=== PATIENT | female | born 1965 | race Caucasian/White ===

== ENCOUNTER 2019-06-05 11:31 | Observation (INO) | payer BC ==
--- NOTE | 2019-06-05 11:46 | ER Document Report ---
ED Medical Screen (RME) - General Stated Complaint: POSSIBLE STROKE Time Seen by Provider: 06/05/19 11:36 Primary Care Provider: MARIO OROZCO MD [Primary Care Provider] - Follow up as needed Notes: 53-year-old female presents from [place] for reports of possible stroke. 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 She reports this st arted at approximately 10:00 this morning. No symptoms at this time. Reports she thought maybe it was her aura prior to her migraine but she does not have a headache at this time. Denies trauma. Also reports that her right hand fingertips feel numb. She reports she also had the symptoms last year once. I have greeted and performed a rapid initial assessment of this patient. A comprehensive ED assessment and evaluation of the patient, analysis of test results and completion of the medical decision making process will be conducted by additional ED providers. Dictation of this chart was performed using voice recognition software; therefore, there may be some unintended grammatical errors. TRAVEL OUTSIDE OF THE [place] IN LAST 30 DAYS: No - Related Data Allergies/Adverse Reactions: No Known Allergies Allergy (Verified 04/02/13 16:24) Past Medical History Past Surgical History: Reports: Hx Hysterectomy, Hx Orthopedic Surgery - right shoulder, L KNEE X3, Hx Tonsillectomy - Immunizations Hx Diphtheria, Pertussis, Tetanus Vaccination: No - UNSURE Doctor's Discharge - Discharge Referrals: MARIO OROZCO MD [Primary Care Provider] - Follow up as needed
--- NOTE | 2019-06-05 12:11 | RADIOLOGY REPORT (SQ) ---
EXAM DESCRIPTION: CT HEAD WITHOUT COMPLETED DATE/TIME: 06/05/2019 11:58 am REASON FOR STUDY: slurred speech COMPARISON: None. TECHNIQUE: Axial images acquired through the brain without intravenous contrast. Images reviewed wi th bone, brain and subdural windows. Additional sagittal and coronal reconstructions were generated. Images stored on PACS. All CT scanners at this facility use dose modulation, iterative reconstruction, and/or weight based d osing when appropriate to reduce radiation dose to as low as reasonably achievable (ALARA). [facility]: Dose Right [facility]: CareDose [facility]: Dose Right [facility]: Teradose 4D [facility]: Smart Chatalog RADIATION DOSE: CT Rad equipment meets quality standard of care and radiation dose reduction techniq ues were employed. CTDIvol: 53.2 mGy. DLP: 1044 mGy-cm. LIMITATIONS: None. FINDINGS: VENTRICLES: Normal size and contour. The cisterns are patent. CEREBRUM: No masses. No hemorrhage. No midline shift. No evidence for acute infarction. Normal gra y/white matter differentiation. No areas of low density in the white matter. CEREBELLUM: No masses. No hemorrhage. No alteration of density. No evidence for acute infarction. EXTRAAXIAL SPACES: No fluid collections. No masses. ORBITS AND GLOBE: No intra- or extraconal masses. Normal contour of globe without masses. CALVARIUM: No fracture. PARANASAL SINUSES: Right maxillary sinus mucous retention cyst or polyp. No fluid. SOFT TISSUES: No mass or hematoma. OTHER: No other significant finding. IMPRESSION: 1. No acute intracranial abnormality. 2. Right maxillary sinus mucous retention cyst or polyp. EVIDENCE OF ACUTE STROKE: NO. COMMENT: Quality ID # [id number]: Final reports with documentation of one or more dose reduction techniques (e.g., Automated exposure control, adjustment of the mA and/or kV according to patient size, use of iterative reconstruction technique) TECHNICAL DOCUMENTATION: JOB ID: [id number] [email or web address]- All Rights Reserved Reading location - IP/workstation name: [email or web address]
[2019-06-05 12:19] LABS: ABSOLUTE BASOPHILS # (AUTO) 0.1 10^3/uL (0.0-0.2); ABSOLUTE EOSINOPHILS # (AUTO) 0.1 10^3/uL (0.0-0.6); ABSOLUTE LYMPHOCYTES (AUTO) 2.1 10^3/uL (0.5-4.7); ABSOLUTE MONOCYTES (AUTO) 0.4 10^3/uL (0.1-1.4); ABSOLUTE NEUT (AUTO) 3.7 10^3/uL (1.7-8.2); BASOPHILS % (AUTO) 1.8 % (0-2); HEMATOCRIT 39.5 % (36.0-47.0); HEMOGLOBIN 13.2 g/dL (12.0-15.5); LYMPHOCYTES % (AUTO) 32.4 % (13-45); MEAN CORPUSCULAR HEMOGLOBIN 30.3 pg (27.0-33.4); MEAN CORPUSCULAR HGB CONC 33.4 g/dL (32.0-36.0); MEAN CORPUSCULAR VOLUME 91 fl (80-97); MONOCYTES % (AUTO) 6.6 % (3-13); PLATELET COUNT 318 10^3/uL (150-450); RED BLOOD COUNT 4.34 10^6/uL (3.72-5.28); RED CELL DISTRIBUTION WIDTH 13.1 % (11.5-14.0); SEGMENTED NEUTROPHILS % (AUTO) 57.2 % (42-78); TOTAL CELLS COUNTED % (AUTO) 100 %; WHITE BLOOD COUNT 6.4 10^3/uL (4.0-10.5)
[2019-06-05 12:23] LABS: INTERNATIONAL RATION (INR) 0.99
[2019-06-05 12:24] LABS: PARTIAL THROMBOPLASTIN TIME 33.2 SEC (23.5-35.8)
[2019-06-05 12:26] LABS: PROTHROMBIN TIME 13.1 SEC (11.4-15.4)
[2019-06-05 12:42] LABS: ALBUMIN 4.5 g/dL (3.5-5.0); ALKALINE PHOSPHATASE 95 U/L (38-126); ANION GAP 8 (5-19); ASPARTATE AMINO TRANSFERASE 19 U/L (14-36); BILIRUBIN,DIRECT 0.1 mg/dL (0.0-0.4); BILIRUBIN,TOTAL 0.6 mg/dL (0.2-1.3); BLOOD UREA NITROGEN 20 mg/dL (7-20); CALCIUM 9.6 mg/dL (8.4-10.2); CARBON DIOXIDE 30 mmol/L (22-30); CHLORIDE 104 mmol/L (98-107); CREATINE KINASE 83 U/L (30-135); GLUCOSE 95 mg/dL (75-110); POTASSIUM 4.5 mmol/L (3.6-5.0); TOTAL PROTEIN 7.4 g/dL (6.3-8.2)
--- NOTE | 2019-06-05 12:45 | EKG REPORT ---
SEVERITY:- NORMAL ECG - SINUS RHYTHM : Confirmed by: Merary Rodriguez MD 05-Jun-2019 12:44:03
[2019-06-05 12:54] LABS: CREATINE KINASE MB 0.91 ng/mL (<4.55)
[2019-06-05 12:56] LABS: TROPONIN I < 0.012 ng/mL
--- NOTE | 2019-06-05 13:18 | RADIOLOGY REPORT (SQ) ---
EXAM DESCRIPTION: CHEST SINGLE VIEW COMPLETED DATE/TIME: 06/05/2019 1:00 pm REASON FOR STUDY: slurred speech COMPARISON: None. EXAM PARAMETERS: NUMBER OF VIEWS: One view. TECHNIQUE: Single frontal radiographic view of the chest acquired. RADIATION DOSE: NA LIMITATIONS: None. FINDINGS: LUNGS AND PLEURA: Minimal atelectasis or scarring in the mid and lower lung zones. No ac [place] pulmonary consolidation. No pneumothorax or pleural effusion. MEDIASTINUM AND HILAR STRUCTURES: No masses. Contour normal. HEART AND VASCULAR STRUCTURES: Borderline cardiomegaly. Normal vasculature. BONES: No acute findings. HARDWARE: None in the chest. OTHER: No other significant finding. IMPRESSION: 1. Minimal atelectasis or scar in the mid and lower lung zones bilaterally. No acute p ulmonary consolidation. 2. Borderline cardiomegaly. TECHNICAL DOCUMENTATION: JOB ID: [id number] [employer]- All Rights Reserved Reading location - IP/workstation name: [email or web address]
[2019-06-05] MEDS ORDERED: FENTANYL CITRATE INJ/PF 100 MCG/2 ML AMPUL IV ONE (14:50)
[2019-06-05] MEDS ORDERED: ONDANSETRON HCL INJ/PF 4 MG/2 ML SDV IV ONE (14:50)
--- NOTE | 2019-06-05 15:09 | ER Document Report ---
ED Neuro Symptoms/Deficit - General Chief Complaint: S/S of Possible Stroke Stated Complaint: POSSIBLE STROKE Time Seen by Provider: 06/05/19 11:36 Primary Care Provider: MARIO OROZCO MD [NO LOCAL MD] - Follow up as needed TRAVEL OUTSIDE OF THE [place] IN LAST 30 DAYS: No - Related Data Allergies/Adverse Reactions: No Known Allergies Allergy (Verified 04/02/13 16:24) Past Medical History - Social History Smoking Status: Unknown if Ever Smoked Family History: Reviewed & Not Pertinent Patient has suicidal ideation: No Patient has homicidal ideation: No Past Surgical History: Reports: Hx Hysterectomy, Hx Orthopedic Surgery - right shoulder, L KNEE X3, Hx Tonsillectomy - Immunizations Hx Diphtheria, Pertussis, Tetanus Vaccination: No - UNSURE Physical Exam - Vital signs Vitals: Temp Pulse Resp BP Pulse Ox 98.2 F 66 18 154/88 H 99 06/05/19 11:32 06/05/19 11:32 06/05/19 11:32 06/05/19 11:32 06/05/19 11:32 Course - Vital Signs Vital signs: Temp Pulse Resp BP Pulse Ox 98.0 F 78 14 158/121 H 93 06/05/19 12:15 06/05/19 12:21 06/05/19 12:21 06/05/19 12:21 06/05/19 12:21 - Laboratory Result Diagrams: 06/05/19 12:00 06/05/19 12:00 Discharge - Discharge Clinical Impression: TIA (transient ischemic attack) Condition: Stable Disposition: ADMITTED OBSERVATION Admitting Provider: Davie (Hospitalist) Unit Admitted: Telemetry Referrals: MARIO OROZCO MD [NO LOCAL MD] - Follow up as needed
--- NOTE | 2019-06-05 15:48 | RADIOLOGY REPORT (SQ) ---
EXAM DESCRIPTION: L SPINE WHOLE COMPLETED DATE/TIME: 06/05/2019 3:34 pm REASON FOR STUDY: back pain COMPARISON: None. NUMBER OF VIEWS: Five views including obliques. TECHNIQUE: AP, lateral, oblique, and sacral radiographic images acquired of the lumbar spine. LIMITATIONS: None. FINDINGS: MINERALIZATION: Normal. SEGMENTATION: Normal. Transitional anatomy. ALIGNMENT: Normal. VERTEBRAE: Maintained height. No fracture or worrisome bone lesion. DISCS: Multilevel mild disc space narrowing. No significant osteophytes or end plate irregularity. POSTERIOR ELEMENTS: Pedicles and facets are intact. No pars defect or posterior arch defects. HARDWARE: None in the spine. PARASPINAL SOFT TISSUES: Normal. PELVIS: Intact as visualized. No fractures or worrisome bone lesions. SI joints intact. OTHER: No other significant finding. IMPRESSION: 1. Transitional lumbosacral anatomy. 2. Degenerative mild changes. 3. No acute osseous findings. TECHNICAL DOCUMENTATION: JOB ID: [id number] [employer]- All Rights Reserved Reading location - IP/workstation name: [email or web address]
[2019-06-05] MEDS ORDERED: LORAZEPAM INJ 2 MG/1 ML VIAL IV ONE (15:50)
[2019-06-05] MEDS ORDERED: LABETALOL HCL INJ 20 MG/4 ML DISP.SYRIN IV PRN (16:18)
--- NOTE | 2019-06-05 16:37 | PDOC H&P ---
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 She described some blurred vision which she perceived to be out of her right eye, and it appeared like she was seeing halos of light around things that were central in her visual field. She began to then feel like she was developing a headache, which she says she chronically has with either some blurred vision or some flashing lights in her visual field. She then developed trouble speaking, primarily knowing what she wanted to say while not being able to get the words out correctly. At this point she sought help from the school nurse who called EMS. The patient then began to develop numbness, weakness, and tingling in her right arm. I cannot find the EMS sheet, but I am told that her blood pressure was elevated when EMS got her, with her systolic reported to be in the 190s. The patient said she feels like after 2 to 3 hours total of this constellation of symptoms that they began to resolve and by the time she got to the emergency department she felt like her speech was better but she was still having some visual problems as well as the headache and the problems with her right arm and hand. She says that her symptoms have slowly resolved and that she has a little bit of numbness in her fingertips of her right hand, primarily the second, third, and fourth digits. She says she had an episode like this happen in October of this year and it lasted 45 minutes to an hour. She also reports a similar episode where she had a headache and trouble speaking many years ago. She says that she often has headaches with associated manifestations as noted above. Her blood pressures are still elevated in the ER but she is mostly asymptomatic. Initial head CT was negative. She says that her only medical problems that she knows of are some chronic pain in her back and her shoulder and she goes to pain management for that. Her only remarkable family history was that her mother from bilateral pulmonary emboli. There is no family history of stroke. She is a non-smoker. Past Surgical History Past Surgical History: Reports: Hysterectomy, Orthopedic Surgery - right shoulder, L KNEE X3, Tonsillectomy Social History Smoking Status: Unknown if Ever Smoked Family History Family History: Reviewed & Not Pertinent Parental Family History Reviewed: Yes Children Family History Reviewed: Yes Sibling(s) Family History Reviewed.: Yes Medication/Allergy Allergies/Adverse Reactions: No Known Allergies Allergy (Verified 04/02/13 16:24) Review of Systems All systems: reviewed and no additional remarkable complaints except as stated - All systems were reviewed and were negative except as noted in the HPI Physical Exam Vital Signs: Temp Pulse Resp BP Pulse Ox 98.0 F 78 15 152/82 H 98 06/05/19 12:15 06/05/19 12:21 06/05/19 16:00 06/05/19 16:00 06/05/19 16:00 Intake & Output 06/04/19 06/05/19 06/06/19 06:59 06:59 06:59 Weight 102.058 kg General appearance: PRESENT: no acute distress, cooperative, morbidly obese Head exam: PRESENT: atraumatic, normocephalic Eye exam: PRESENT: EOMI, PERRLA, other - Possible mild exophthalmos. ABSENT: conjunctival injection, nystagmus, scleral icterus Ear exam: PRESENT: normal external ear exam Mouth exam: PRESENT: moist, neck supple Throat exam: ABSENT: post pharyngeal erythema Neck exam: PRESENT: full ROM. ABSENT: carotid bruit, JVD, lymphadenopathy, meningismus, tenderness, thyromegaly Respiratory exam: PRESENT: clear to auscultation sourav, symmetrical, unlabored. ABSENT: accessory muscle use, chest wall tenderness, crackles, prolonged expiratory phas, rhonchi, tachypnea, wheezes Cardiovascular exam: PRESENT: RRR, +S1, +S2 Pulses: PRESENT: normal carotid pulses Vascular exam: PRESENT: normal capillary refill GI/Abdominal exam: PRESENT: normal bowel sounds, soft. ABSENT: distended, guarding, rebound, tenderness Extremities exam: ABSENT: clubbing, pedal edema Musculoskeletal exam: PRESENT: ambulatory, normal inspection. ABSENT: deformity Neurological exam: PRESENT: alert, awake, oriented to person, oriented to place, oriented to time, oriented to situation, CN II-XII grossly intact. ABSENT: motor sensory deficit Psychiatric exam: PRESENT: appropriate affect, normal mood Skin exam: PRESENT: dry, warm Results Laboratory Results: 06/05/19 12:00 06/05/19 12:00 06/05/19 06/05/19 12: 12:00 WBC 6.4 RBC 4.34 Hgb 13.2 Hct 39.5 MCV 91 MCH 30.3 MCHC 33.4 RDW 13.1 Plt Count 318 Seg Neutrophils % 57.2 Sodium 141.5 Potassium 4.5 Chloride 104 Carbon Dioxide 30 Anion Gap 8 BUN 20 Creatinine 0.68 Est GFR ( Amer) > 60 Glucose 95 Calcium 9.6 Total Bilirubin 0.6 AST 19 Alkaline Phosphatase 95 Total Protein 7.4 Albumin 4.5 06/05/19 06/05/19 12: 12:00 Creatine Kinase 83 CK-MB (CK-2) 0.91 Troponin I < 0.012 Impressions: Chest X-Ray 06/05/19 11:40 IMPRESSION: 1. Minimal atelectasis or scar in the mid and lower lung zones bilaterally. No acute pulmonary consolidation. 2. Borderline cardiomegaly. Head CT 06/05/19 11:40 IMPRESSION: 1. No acute intracranial abnormality. 2. Right maxillary sinus mucous retention cyst or polyp. EVIDENCE OF ACUTE STROKE: NO. Lumbar Spine X-Ray 06/05/19 14:50 IMPRESSION: 1. Transitional lumbosacral anatomy. 2. Degenerative mild changes. 3. No acute osseous findings. Assessment and Plan - Diagnosis (1) TIA (transient ischemic attack) Is this a current diagnosis for this admission?: Yes Plan: MRI and MRA along with carotid Dopplers have been ordered. We will give her full strength aspirin and then a baby aspirin daily. We will start a statin. We will check a lipid panel. Permissive hypertension with PRN medications the first 24 hours. If her blood pressure still elevated, will try to start bringing them down at that time. Risk factor modification. She displays no functional deficits at this time so I do not think she needs speech therapy, physical therapy, Occupational Therapy. Another possibility here is that this is an atypical migraine. If she rules out for acute stroke, will still pursue risk factor modification but we will also try to set her up with an outpatient neurology appointment. (2) Hypertensive emergency Is this a current diagnosis for this admission?: Yes Plan: Permissive hypertension with PRN labetalol for now, will try to bring the blood pressure down after the first 24 hours if she remains hypertensive. - Inpatient Certification Based on my medical assessment, after consideration of the patient's comorbidities, presenting symptoms, or acuity I expect that the services needed warrant INPATIENT care.: Yes I certify that my determination is in accordance with my understanding of Medicare's requirements for reasonable and necessary INPATIENT services [42 CFR 412.3e].: Yes Medical Necessity: Need Close Monitoring Due to Risk of Patient Decompensation, Need For Continuous Telemetry Monitoring, Need for Neurological Checks
[2019-06-05] MEDS ORDERED: ASPIRIN 325 MG TABLET PO ONE (17:00)
--- NOTE | 2019-06-05 17:30 | RADIOLOGY REPORT (SQ) ---
EXAM DESCRIPTION: MRA HEAD WITHOUT COMPLETED DATE/TIME: 06/05/2019 4:52 pm REASON FOR STUDY: speech difficulty, weakness COMPARISON: None. TECHNIQUE: Axial 3-D [id number]-[id number] acquisition imaging performed through the brain in the area of t he [place]. Images reformatted using 3-D MIPS. LIMITATIONS: None. FINDINGS: SOURCE IMAGES: No unexpected findings on source images. No large masses. 3-D MIP: No aneurysm. No occlusions. No significant stenosis. OTHER: No other significant finding. IMPRESSION: NORMAL MRA OF THE [place]. TECHNICAL DOCUMENTATION: JOB ID: [id number] [employer]- All Rights Reserved Reading location - IP/workstation name: [email or web address]
--- NOTE | 2019-06-05 17:33 | RADIOLOGY REPORT (SQ) ---
EXAM DESCRIPTION: MRI HEAD WITHOUT COMPLETED DATE/TIME: 06/05/2019 4:52 pm REASON FOR STUDY: speech difficulty, weakness COMPARISON: CT 06/05/2019 TECHNIQUE: Multiplanar imaging includes non-contrasted T1, T2, FLAIR, and diffusion with ADC map seq uences. Images stored on PACS. LIMITATIONS: None. FINDINGS: ANATOMY: No anomalies. Normal vascular flow voids. Pituitary fossa normal. CSF SPACES: Normal in size and contour. No hemorrhage. CEREBRUM: Sulci and gyri normal in size and contour. Normal white matter signal on FLAIR imaging. No evidence of hemorrhage, mass, or extraaxial fluid collection. POSTERIOR FOSSA: No signal alteration. No hemorrhage. No edema, masses or mass effect. Internal iraida tory canals, cerebello-pontine angles, mastoids normal. DIFFUSION IMAGING: Negative for acute or sub-acute infarction. ORBITS: No masses. Globes normal. PARANASAL SINUSES: No fluid levels. Mucosa normal. OTHER: No other significant finding. IMPRESSION: NORMAL MRI OF THE BRAIN WITHOUT INTRAVENOUS GADOLINIUM CONTRAST. EVIDENCE OF ACUTE STROKE: NO. TECHNICAL DOCUMENTATION: JOB ID: [id number]- All Rights Reserved Reading location - IP/workstation name: [email or web address]
--- NOTE | 2019-06-05 19:14 | RADIOLOGY REPORT (SQ) ---
EXAM DESCRIPTION: CAROTID DOPPLER COMPLETED DATE/TIME: 06/05/2019 6:54 pm REASON FOR STUDY: TIA COMPARISON: None. TECHNIQUE: Grayscale ultrasound, Doppler velocity and spectra, and color Doppler images acquired of the extra-cranial carotid and vertebral arteries. Images stored on PACS. LIMITATIONS: None. FINDINGS: RIGHT CAROTID CCA Velocities: Within normal limits. ICA Velocities Peak systolic 0.93 m/s. End diastolic 0.34 m/s. Proximal ICA/CCA peak systolic ratio 1.05. Mild soft plaque is noted. LEFT CAROTID CCA Velocities: Within normal limits. ICA Velocities Peak systolic 0.86 m/s. End diastolic 0.30 m/s. Proximal ICA/CCA peak systolic ratio 0.5. There is soft plaque. VERTEBRAL ARTERIES: Antegrade flow. Normal waveforms. SUBCLAVIAN ARTERIES: No finding. OTHER: Velocities are elevated in the proximal left common carotid artery. Clinical significance of this is uncertain. IMPRESSION: NO HEMODYNAMICALLY SIGNIFICANT STENOSIS. COMMENT: Quality ID #[id number]: Velocity criteria are extrapolated from the diameter data as defined by t he Society of Radiologists in Ultrasound Consensus Conference. Radiology 2003: 229; 340-346. TECHNICAL DOCUMENTATION: JOB ID: [id number]- All Rights Reserved Reading location - IP/workstation name: [email or web address]
[2019-06-05 21:08] LABS: APPEARANCE,URINE SLIGHTLY-CLOUDY; BILIRUBIN,URINE NEGATIVE (NEGATIVE); COLOR,URINE YELLOW; GLUCOSE, URINE NEGATIVE (NEGATIVE); KETONES,URINE 20 mg/dL (NEGATIVE); LEUKOCYTE ESTERASE,URINE TRACE (NEGATIVE); NITRITE,URINE NEGATIVE (NEGATIVE); PROTEIN,URINE NEGATIVE (NEGATIVE); UROBILINOGEN,URINE NEGATIVE mg/dL (<2.0)
[2019-06-05] MEDS ORDERED: ATORVASTATIN CALCIUM 80 MG TABLET PO SCH (22:00)
--- NOTE | 2019-06-06 01:27 | ER Document Report ---
Entered by ANNAMARIE KUO SCRIBE 06/05/19 1531 Acting as scribe for:ADAM MONTAÑO DO ED Neuro Symptoms/Deficit - General Chief Complaint: S/S of Possible Stroke Stated Complaint: POSSIBLE STROKE Time Seen by Provider: 06/05/19 11:36 Information source: Patient Notes: This 53-year-old female patient presents to the emergency department today with complaints of vision changes and being unable to say what she wanted to say today while at work. 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 Patient had a similar episode in October of 2017 but she states she was never seen for it at that time. Patient's symptoms have now completely resolved other than a "slight" headache. Patient does mention acute on chronic back pain stating that she was lifting heavy things this morning which she thinks may have flared her back pain. Patient denies a history of HTN. Patient denies incontinence or dysuria. TRAVEL OUTSIDE OF THE [place] IN LAST 30 DAYS: No - Related Data Allergies/Adverse Reactions: No Known Allergies Allergy (Verified 04/02/13 16:24) Past Medical History - General Information source: Patient - Social History Smoking Status: Never Smoker Cigarette use (# per day): No Chew tobacco use (# tins/day): No Frequency of alcohol use: None Drug Abuse: None Occupation: school occupational therapist Lives with: Family Family History: Reviewed & Not Pertinent Patient has suicidal ideation: No Patient has homicidal ideation: No Past Surgical History: Reports: Hx Hysterectomy, Hx Orthopedic Surgery - right shoulder, L KNEE X3, Hx Tonsillectomy - Immunizations Hx Diphtheria, Pertussis, Tetanus Vaccination: No - UNSURE Review of Systems - Review of Systems Constitutional: No symptoms reported EENT: See HPI, Other - vision changes Cardiovascular: No symptoms reported Respiratory: No symptoms reported Gastrointestinal: No symptoms reported Genitourinary: No symptoms reported Female Genitourinary: No symptoms reported Musculoskeletal: See HPI, Back pain Skin: No symptoms reported Hematologic/Lymphatic: No symptoms reported Neurological/Psychological: See HPI, Headaches, Other - difficulty "saying what she wanted to" -: Yes All other systems reviewed and negative Physical Exam - Vital signs Vitals: Temp Pulse Resp BP Pulse Ox 98.2 F 66 18 154/88 H 99 12/04/19 11:32 06/05/19 11:32 06/05/19 11:32 06/05/19 11:32 06/05/19 11:32 Interpretation: Normal - General General appearance: Appears well, Alert - HEENT Head: Normocephalic, Atraumatic Eyes: Normal Pupils: PERRL - Respiratory Respiratory status: No respiratory distress Chest status: Nontender Breath sounds: Normal Chest palpation: Normal - Cardiovascular Rhythm: Regular Heart sounds: Normal auscultation Murmur: No - Abdominal Inspection: Normal Distension: No distension Bowel sounds: Normal Tenderness: Nontender Organomegaly: No organomegaly - Back Back: Normal, Nontender - Extremities General upper extremity: Normal inspection, Nontender, Normal color, Normal ROM, Normal temperature General lower extremity: Normal inspection, Nontender, Normal color, Normal ROM, Normal temperature, Normal weight bearing. No: Bhavesh's sign - Neurological Neuro grossly intact: Yes Cognition: Normal Orientation: AAOx4 [place] Coma Scale Eye Opening: Spontaneous [place] Coma Scale Verbal: Oriented [place] Coma Scale Motor: Obeys Commands [place] Coma Scale Total: 15 Speech: Normal Motor strength normal: LUE, RUE, LLE, RLE Sensory: Normal - Psychological Associated symptoms: Normal affect, Normal mood - Skin Skin Temperature: Warm Skin Moisture: Dry Skin Color: Normal Course - Re-evaluation Re-evalutation: 06/05/19 15:05 Patient is a 53-year-old female who comes in after having an episode during which she could not talk and could not move her right side. Symptoms have resolved except for mild paresthesias in her right hand. No acute findings on CT. Blood work benign. Patient was hypertensive 200s over 100s for EMS but that has trended down on its own. Patient has not had symptoms like this in the past. Concern for TIA. Discussed with the hospitalist and patient will be admitted. Stable at the time of admission. - Vital Signs Vital signs: Temp Pulse Resp BP Pulse Ox 98.0 F 78 14 158/121 H 93 06/05/19 12:15 06/05/19 12:21 06/05/19 12:21 06/05/19 12:21 06/05/19 12:21 - Laboratory Result Diagrams: 06/05/19 12:00 06/05/19 12:00 ED Alteplase Inc/Exc Criteria - Inclusion Criteria: 1: Patient presented to ED within 3 hours of acute ischemic stroke symptom onset? -: Yes 2: Did baseline CT exclude intracranial hemorrhage and/or other risk factors? -: Yes 3: Is the age of the patient 18 years of age or greater? -: Yes : If any of the above questions are answered "NO" then stop, patient is not a candidate for Alteplase, : If all of the above questions are answered "YES" then continue with Exclusion Criteria. - Exclusion Criteria: 1: Is there evidence of intracranial hemorrhage on baseline CT? -: No 2: Is there suspicion of subarachnoid hemorrhage (even if CT negative)? 3: Is there a history of serious head trauma, recent previous stroke or MA withi n 3 months? 4: Does the patient have a clinical presentation consistent with MA or post-MA pericarditis? 5: Is there history of intracranial hemorrhage? 6: On repeated measurement is Systolic BP greater than 185mmHg or Diastolic BP greater that 110 mmHg and is aggressive treatment needed to reduce blood pressure to these limits (e.g. constant infusion of an anti-hypertensive)? 7: Did the patient awake with stroke symptoms? 8: Has the patient had a lumbar puncture or an arterial puncture at a non- compressile site within 7 days? 9: With in the last 14 days did the patient have surgery or major trauma? 10: Is the patient or less than 2 weeks? 11: Was there any active bleeding or acute trauma? 12: Does the patient have intracranial neoplasm, arteriovenous malformation or aneurysm? 13: Does the patient have abnormal glucose (less than 50 or greater than 400mg/dl)? Record glucose in Comment. 14: Patient has rapidly improving symptoms at the time Alteplase is to be Administered. 15: Does the patient have any risks for bleeding, including but not limited to: a.: Current use of Coumadin with PT greater than 15 seconds or INR greater than 1.7. b.: Current use of Pradaxa (Dabigatran). c.: Heparin administereed within the past 48 hours and PTT elevated. d.: Platelet count less than 100,000/mm. e.: Major surgery or serious trauma within 14 days. f.: Gastrointestinal or gynecological urinary bleeding within 14 days. g.: Myocardial Infarction (MA) within 3 months. : If the answer to any of the above questions is "YES" then stop, the patient is not a candidate for Alteplase. : If the answer to all of the above questions is "NO" then the patient may be eligible for the Administration of Alteplase. : If the patient is noted to have seizure activity at onset of Stroke symptoms; Consult Neurologist for further evaluation. - The patient is: -: Included and is eligible to receive Alteplase. *Initiate bed placement at higher level of care* Reviewed risks & benefits of thrombolytic therapy: I have reviewed the risks and benefits of thrombolytic therapy with the patient and/or his/her family. -: Excluded and not eligible to receive Alteplase for the above exclusions. -: Excluded and not eligible to receive Alteplase for other reasons (specify in comments): - Diagnosis of TIA: -: Patient presented with transient symptoms that are now resolved and no other neurologic findings are currently present. List symptoms in comments. -: Yes -: Patient is NOT a candidate for tPA. -: Yes -: ____(put name in comment) has been consulted for admission and continued evaluation of risk factor assessment. ED NIH Stroke Scale - NIH Stroke Scale When completed:: Before Alteplase *: 1. NIH scale should be completed with appropriate accompanying assessment tools. *: 2. The NIH should reflect what the patient is capable of doing and should not be coached by the clinician. 1a. Level of Consciousness: 0=Alert;keenly responsive -: 1=Drowsy -: 2=Obtunded -: 3=Coma/unresponsive or reflex to noxious stimuli. 1b. Orientation Questions: a. What month is it? -: b. How old are you? -: 0=Answers both questions correctly. -: 1=Answers one question correctly or patient is intubated or has orotracheal trauma. -: 2=Answers neither question correctly. 1c. Response to commands: a. Open and close eyes? -: b. [place] Clerk and release hand? -: Credit is given despite weakness. Demonstration of task is permitted. Substitute command if hands cannot be used. -: 0=Performs both tasks correctly -: 1=Performs one task correctly -: 2=Performs neither task correctly 2. Gaze: Establish eye contact and instruct patient to "Follow my finger" -: 0=Normal -: 1=Partial gaze palsy. Gaze is abnormal in one or both eyes, but where forced deviation or total gaze paresis is not present. -: 2=Forced deviation or total gaze paresis. 3. Visual Jones: Sees fingers in all four quadrants. -: 0=No visual loss. -: 1=Partial hemianopsia. -: 2=Complete hemianopsia. -: 3=Bilateral hemianopsia (including Cortical blindness) 4. Facial Movement: Instruct patient to: -: a. Show me your teeth -: b. Raise your eyebrows -: c. Close your eyes -: d. Smile -: 0=Normal symmetrical movement -: 1=Minor paralysis (flattened nasolabial fold, asymmetry on smiling). -: 2=Partial paralysis (total or near total paralysis of lower face). -: 3=Complete paralysis of upper and lower face 5. Motor functions (left arm): Alternate sides and extend each arm with palms down (90 degrees if sitting or 45 degrees for supine). -: 0=No drift;limb holds for full 10 seconds. -: 1=Drift; limb holds but drifts down before full 10 seconds, but does not hit bed. -: 2=Some effort against gravity; limb cannot get to or maintain position. -: 3=No effort against gravity; limb falls. -: 4=No movement. -: UN=Amputation, joint fusion, explain in comments. 5. Motor Functions (right arm): Alternate sides and extend each arm with palms down (90 degrees if sitting or 45 degrees for supine). -: 0=No drift;limb holds for full 10 seconds. -: 1=Drift; limb holds but drifts down before full 10 seconds, but does not hit bed. -: 2=Some effort against gravity; limb cannot get to or maintain position. -: 3=No effort against gravity; limb falls. -: 4=No movement. -: UN=Amputation, joint fusion, explain in comments. 6. Motor Functions (left leg): With patient lying supine, alternate sides and extend each leg (30 degrees always while supine). -: 0=No drift, leg holds position for full 5 seconds -: 1=Drift; leg falls before full 5 seconds but does not hit bed. -: 2=Some effort against gravity, leg falls to bed but some effort against gravity. -: 3=No effort against gravity, leg falls to bed immediately. -: 4=No movement. -: UN=Amputation, joint fusion; explain in comments. 6. Motor Functions (right leg): With patient lying supine, alternate sides and extend each leg (30 degrees always while supine). -: 0=No drift, leg holds position for full 5 seconds -: 1=Drift; leg falls before full 5 seconds but does not hit bed. -: 2=Some effort against gravity, leg falls to bed but some effort against gravity. -: 3=No effort against gravity, leg falls to bed immediately. -: 4=No movement. -: UN=Amputation, joint fusion; explain in comments. 7. Limb Ataxia: With eyes open instruct patient to: -: a. "Touch your finger to your nose". -: b. "Touch your heel to your greene" -: 0=Absent -: 1=Present in one limb. -: 2=Present in two limbs. -: UN=Amputation or joint fusion; explain in comments. 8. Sensory: Test sensation using pinprick or noxious stimuli. Test as many body parts as possible. -: 0=Normal;no sensory loss -: 1=Mile to moderate sensory loss (patient feels pin prick but is less sharp on affected side). -: 2=Severe or total sensory loss. 9. Best Language: Instruct patient to: -: a. "Describe what you see in this picture." -: b. "Name the items in this picture." -: c. "Read these sentences." -: 0=No aphasia, normal -: 1=Mild to moderate aphasia. -: 2=Severe aphasia -: 3=Mute, global aphasia, no usable speech or auditory comprehension. 10. Articulation, Dysarthia: Instruct patient to: -: "Read these words" or "Repeat these words" -: 0=Normal -: 1=Mild to moderate; patient may slur some words but can be understood without difficulty. -: 2=Severe; patients speech so slurred as to be unintelligible in the absence of dysphasia. -: UN=Intubated or other physical barrier, explain in comments. 11. Extinction or inattention: 0=No abnormality -: 1= Visual, tactile, auditory, spatial, or personal inattention or extinction to bilateral simulation in one or the sensory modalities. -: 2=Profound korin-inattention or korin-inattention to more than one modality; does not recognize own hand. 11. Responses: 0 Total Score: 0 Discharge - Discharge Clinical Impression: TIA (transient ischemic attack) Condition: Stable Disposition: ADMITTED OBSERVATION Admitting Provider: Davie (Hospitalist) Unit Admitted: IMCU I personally performed the services described in the documentation, reviewed and edited the documentation which was dictated to the scribe in my presence, and it accurately records my words and actions.
[2019-06-06 05:34] VITALS: BP 112/51
[2019-06-06 05:57] LABS: HEMATOCRIT 37.8 % (36.0-47.0); HEMOGLOBIN 12.6 g/dL (12.0-15.5); MEAN CORPUSCULAR HGB CONC 33.4 g/dL (32.0-36.0); MEAN CORPUSCULAR VOLUME 90 fl (80-97); PLATELET COUNT 293 10^3/uL (150-450); RED CELL DISTRIBUTION WIDTH 13.1 % (11.5-14.0); WHITE BLOOD COUNT 6.4 10^3/uL (4.0-10.5)
[2019-06-06 06:20] LABS: ANION GAP 7 (5-19); BLOOD UREA NITROGEN 17 mg/dL (7-20); CALCIUM 9.3 mg/dL (8.4-10.2); CARBON DIOXIDE 29 mmol/L (22-30); CHLORIDE 106 mmol/L (98-107); CHOLESTEROL 208.16 mg/dL (0-200); GLUCOSE 98 mg/dL (75-110); POTASSIUM 3.8 mmol/L (3.6-5.0); TRIGLYCERIDES 63 mg/dL (<150)
[2019-06-06 06:31] LABS: DIRECT LDL 127 mg/dL (<100)
[2019-06-06] MEDS ORDERED: ASPIRIN 81 MG TABLET, CHEWABLE PO SCH (10:00)
[2019-06-06] MEDS ORDERED: ACETAMINOPHEN 325 MG TABLET PO ONE (11:00)
--- NOTE | 2019-06-06 18:36 | PDOC DISCHARGE SUMMARY ---
Impression - Admit/DC Date/PCP Admission Date/Primary Care Provider: 06/05/19 15:36 Discharge Date: 06/06/19 - Discharge Diagnosis (1) TIA (transient ischemic attack) Is this a current diagnosis for this admission?: Yes (2) Hypertensive emergency Is this a current diagnosis for this admission?: Yes - Additional Information Resuscitation Status: Full Code Discharge Diet: Cardiac Discharge Activity: Activity As Tolerated Referrals: DILLON SEGAL MD [NO LOCAL MD] - 06/18/19 8:45 am (will be seeing Laly Rice) MARITZA NICHOLSON MD [NO LOCAL MD] - 06/14/19 11:00 am (1-2 weeks) Prescriptions: Atorvastatin Calcium [Lipitor 10 mg Tablet] 10 mg PO QHS #30 tablet Home Medications: Baclofen [Baclofen 10 mg Tablet] 10 mg PO BID 06/05/19 Buprenorphine HCl [Belbuca] 600 mcg PO BID 06/05/19 Cholecalciferol (Vitamin D3) [Vitamin D3 3000 unit Tablet] 3,000 unit PO DAILY 06/05/19 Diclofenac Submicronized [Zorvolex] 35 mg PO TID 06/05/19 Aspirin [Aspirin 81 mg Chewable Tablet] 81 mg PO DAILY tab.chew 06/06/19 Atorvastatin Calcium [Lipitor 10 mg Tablet] 10 mg PO QHS #30 tablet 06/06/19 History of Present Illiness History of Present Illness: JORGE MONTGOMERY 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 She described some blurred vision which she perceived to be out of her right eye, and it appeared like she was seeing halos of light around things that were central in her visual field. She began to then feel like she was developing a headache, which she says she chronically has with either some blurred vision or some flashing lights in her visual field. She then developed trouble speaking, primarily knowing what she wanted to say while not being able to get the words out correctly. At this point she sought help from the school nurse who called EMS. The patient then began to develop numbness, weakness, and tingling in her right arm. I cannot find the EMS sheet, but I am told that her blood pressure was elevated when EMS got her, with her systolic reported to be in the 190s. The patient said she feels like after 2 to 3 hours total of this constellation of symptoms that they began to resolve and by the time she got to the emergency department she felt like her speech was better but she was still having some visual problems as well as the headache and the problems with her right arm and hand. She says that her symptoms have slowly resolved and that she has a little bit of numbness in her fingertips of her right hand, primarily the second, third, and fourth digits. She says she had an episode like this happen in October of this year and it lasted 45 minutes to an hour. She also reports a similar episode where she had a headache and trouble speaking many years ago. She says that she often has headaches with associated manifestations as noted above. Her blood pressures are still elevated in the ER but she is mostly asymptomatic. Initial head CT was negative. She says that her only medical problems that she knows of are some chronic pain in her back and her shoulder and she goes to pain management for that. Her only remarkable family history was that her mother from bilateral pulmonary emboli. There is no family history of stroke. She is a non-smoker. Hospital Course Hospital Course: Her imaging work-up was negative for stroke. Her symptoms have resolved. Her blood pressure has come down on its own. Send her home on an aspirin and a statin. We have scheduled to follow-up with a local neurologist for consultation regarding whether or not this is a complex migraine syndrome. Her labs and examination were reassuring and she was discharged in good condition. Physical Exam Vital Signs: Temp Pulse Resp BP Pulse Ox 97.6 F 66 12 112/51 L 98 06/06/19 12:33 06/06/19 12:33 06/06/19 12:33 06/06/19 04:41 06/06/19 12:33 Intake & Output 06/05/19 06/06/19 06/07/19 06:59 06:59 06:59 Intake Total 1332 Balance 1332 Weight 107 kg General appearance: PRESENT: no acute distress, cooperative, morbidly obese Respiratory exam: PRESENT: clear to auscultation sourav, symmetrical, unlabored. ABSENT: accessory muscle use, chest wall tenderness, crackles, prolonged expiratory phas, rhonchi, tachypnea, wheezes Cardiovascular exam: PRESENT: RRR, +S1, +S2 GI/Abdominal exam: PRESENT: normal bowel sounds, soft. ABSENT: distended, guarding, rebound, tenderness Extremities exam: ABSENT: clubbing, pedal edema Musculoskeletal exam: PRESENT: ambulatory, normal inspection. ABSENT: deformity Neurological exam: PRESENT: alert, awake, oriented to person, oriented to place, oriented to time, oriented to situation, CN II-XII grossly intact, normal gait. ABSENT: motor sensory deficit Psychiatric exam: PRESENT: appropriate affect, normal mood Skin exam: PRESENT: dry, warm Results Laboratory Results: WBC 6.4 10^3/uL (4.0-10.5) 06/06/19 05:19 RBC 4.20 10^6/uL (3.72-5.28) 06/06/19 05:19 Hgb 12.6 g/dL (12.0-15.5) 06/06/19 05:19 Hct 37.8 % (36.0-47.0) 06/06/19 05:19 MCV 90 fl (80-97) 06/06/19 05:19 MCH 30.0 pg (27.0-33.4) 06/06/19 05:19 MCHC 33.4 g/dL (32.0-36.0) 06/06/19 05:19 RDW 13.1 % (11.5-14.0) 06/06/19 05:19 Plt Count 293 10^3/uL (150-450) 06/06/19 05:19 Lymph % (Auto) 32.4 % (13-45) 06/05/19 12:00 [place] % (Auto) 6.6 % (3-13) 06/05/19 12:00 Eos % (Auto) 2.0 % (0-6) 06/05/19 12:00 Baso % (Auto) 1.8 % (0-2) 06/05/19 12:00 Absolute Neuts (auto) 3.7 10^3/uL (1.7-8.2) 06/05/19 12:00 Absolute Lymphs (auto) 2.1 10^3/uL (0.5-4.7) 06/05/19 12:00 Absolute Monos (auto) 0.4 10^3/uL (0.1-1.4) 06/05/19 12:00 Absolute Eos (auto) 0.1 10^3/uL (0.0-0.6) 06/05/19 12:00 Absolute Basos (auto) 0.1 10^3/uL (0.0-0.2) 06/05/19 12:00 Seg Neutrophils % 57.2 % (42-78) 06/05/19 12:00 PT 13.1 SEC (11.4-15.4) 06/05/19 12:06 INR 0.99 06/05/19 12:06 APTT 33.2 SEC (23.5-35.8) 06/05/19 12:06 Sodium 141.6 mmol/L (137-145) 06/06/19 05:19 Potassium 3.8 mmol/L (3.6-5.0) 06/06/19 05:19 Chloride 106 mmol/L (98-107) 06/06/19 05:19 Carbon Dioxide 29 mmol/L (22-30) 06/06/19 05:19 Anion Gap 7 (5-19) 06/06/19 05:19 BUN 17 mg/dL (7-20) 06/06/19 05:19 Creatinine 0.85 mg/dL (0.52-1.25) 06/06/19 05:19 Est GFR ( Amer) > 60 (>60) 06/06/19 05:19 Est GFR (MDRD) Non-Af > 60 (>60) 06/06/19 05:19 Glucose 98 mg/dL (75-110) 06/06/19 05:19 POC Glucose 101 mg/dL (70-110) 06/05/19 12:01 Calcium 9.3 mg/dL (8.4-10.2) 06/06/19 05:19 Total Bilirubin 0.6 mg/dL (0.2-1.3) 06/05/19 12:00 Direct Bilirubin 0.1 mg/dL (0.0-0.4) 06/05/19 12:00 Neonat Total Bilirubin Not Reportable 06/05/19 12:00 Neonat Direct Bilirubin Not Reportable 06/05/19 12:00 Neonat Indirect Bili Not Reportable 06/05/19 12:00 AST 19 U/L (14-36) 06/05/19 12:00 ALT 19 U/L (<35) 06/05/19 12:00 Alkaline Phosphatase 95 U/L (38-126) 06/05/19 12:00 Creatine Kinase 83 U/L (30-135) 06/05/19 12:00 CK-MB (CK-2) 0.91 ng/mL (<4.55) 06/05/19 12:00 Troponin I < 0.012 ng/mL 06/05/19 12:00 Total Protein 7.4 g/dL (6.3-8.2) 06/05/19 12:00 Albumin 4.5 g/dL (3.5-5.0) 06/05/19 12:00 Triglycerides 63 mg/dL (<150) 06/06/19 05:19 Cholesterol 208.16 mg/dL (0-200) H 06/06/19 05:19 LDL Cholesterol Direct 127 mg/dL (<100) H 06/06/19 05:19 VLDL Cholesterol 13.0 mg/dL (10-31) 06/06/19 05:19 HDL Cholesterol 49 mg/dL (>40) 06/06/19 05:19 Urine Color YELLOW 06/05/19 17:00 Urine Appearance SLIGHTLY-CLOUDY 06/05/19 17:00 Urine pH 5.0 (5.0-9.0) 06/05/19 17:00 Ur Specific [place] 1.020 06/05/19 17:00 Urine Protein NEGATIVE mg/dL (NEGATIVE) 06/05/19 17:00 Urine Glucose (UA) NEGATIVE mg/dL (NEGATIVE) 06/05/19 17:00 Urine Ketones 20 mg/dL (NEGATIVE) H 06/05/19 17:00 Urine Blood SMALL (NEGATIVE) H 06/05/19 17:00 Urine Nitrite NEGATIVE (NEGATIVE) 06/05/19 17:00 Urine Bilirubin NEGATIVE (NEGATIVE) 06/05/19 17:00 Urine Urobilinogen NEGATIVE mg/dL (<2.0) 06/05/19 17:00 Ur Leukocyte Esterase TRACE (NEGATIVE) H 06/05/19 17:00 Urine WBC (Auto) 3 /HPF 06/05/19 17:00 Urine RBC (Auto) 1 /HPF 06/05/19 17:00 Urine Bacteria (Auto) TRACE /HPF 06/05/19 17:00 Squamous Epi Cells Auto 2 /HPF 06/05/19 17:00 Urine Mucus (Auto) RARE /LPF 06/05/19 17:00 Urine Ascorbic Acid NEGATIVE (NEGATIVE) 06/05/19 17:00 06/05/19 12:00 CK-MB (CK-2) 0.91 Troponin I < 0.012 Impressions: Chest X-Ray 06/05/19 11:40 IMPRESSION: 1. Minimal atelectasis or scar in the mid and lower lung zones bilaterally. No acute pulmonary consolidation. 2. Borderline cardiomegaly. Head CT 06/05/19 11:40 IMPRESSION: 1. No acute intracranial abnormality. 2. Right maxillary sinus mucous retention cyst or polyp. EVIDENCE OF ACUTE STROKE: NO. Brain MRI with MRA 06/05/19 14:48 IMPRESSION: NORMAL MRA OF THE [place]. Head MRI 06/05/19 14:48 IMPRESSION: NORMAL MRI OF THE BRAIN WITHOUT INTRAVENOUS GADOLINIUM CONTRAST. EVIDENCE OF ACUTE STROKE: NO. Carotid Doppler Study 06/05/19 14:49 IMPRESSION: NO HEMODYNAMICALLY SIGNIFICANT STENOSIS. Lumbar Spine X-Ray 06/05/19 14:50 IMPRESSION: 1. Transitional lumbosacral anatomy. 2. Degenerative mild changes. 3. No acute osseous findings. Plan Time Spent: Greater than 30 Minutes Stroke Is this a Stroke Patient?: No Acute Heart Failure - Is this a Heart Failure Patient?: No
== END 2019-06-06 13:10 | disposition home or self-care (01) ==
LOC: ER 11:31 → INTOOBSV 15:36 → EH 15:36 → 3S 19:09
PROVIDERS: ADMIT Family Medicine; ATTEND Family Medicine
DX: G45.9 Transient cerebral ischemic attack, unspecified (principal); I16.1 Hypertensive emergency; R20.0 Anesthesia of skin; G89.29 Other chronic pain; M54.89 Other dorsalgia; M25.519 Pain in unspecified shoulder; E66.01 Morbid (severe) obesity due to excess calories; Z83.6 Family history of other diseases of the respiratory system; Z98.890 Other specified postprocedural states
CPT/HCPCS: 93005; 99285; 96374; 96375; 36415 ×2; 82553; 82962; 82550; 85025; 85027; 85610; 85730; 80048; 80053; 81001; 84484; 80061; 93880; 70551; 70544; 71045; 72110; 70450; 93010; G0378 ×3; J3010; J2060; J2405